=== PATIENT | male | born 2000 | race Caucasian/White ===

== ENCOUNTER 2019-08-24 15:52 | Emergency (ER) | payer OTHER, SELFPAY ==
[2019-08-24 16:02] VITALS: BP 139/73; PULSE 80; RESP 16; TEMP 36.5; O2SAT 100
--- NOTE | 2019-08-24 16:13 | ED.GENADULT ---
HPI - General Adult General Chief complaint: GI Bleed Stated complaint: Blood in Stool Time Seen by Provider: 08/24/19 16:15 Source: patient and RN notes reviewed Mode of arrival: ambulatory Limitations: no limitations History of Present Illness HPI narrative: 19-year-old male presents with concern for rectal bleeding. Reports 2-month history of intermittent bleeding when he wipes after a bowel movement, reports this morning he noted drips of blood in the toilet. He denies any pain with bowel movements. Reports family history of hemorrhoids. Denies black, tarry stools. Denies diarrhea or constipation. Denies abdominal pain. Denies nausea, vomiting. MD complaint: Rectal bleeding Related Data Allergies Allergy/AdvReac Type Severity Reaction Status Date / Time No Known Allergies Allergy Mild Verified 12/18/12 19:56 Review of Systems Review of Systems: Narrative: CONSTITUTIONAL: Denies malaise, chills, sweats, or fever. CARDIOVASCULAR: Denies chest pain, palpitations RESPIRATORY: Denies cough or dyspnea. GASTROINTESTINAL: Denies abdominal pain, nausea, vomiting, diarrhea, or mucous stools. Reports rectal bleeding with bowel movement GENITOURINARY: Denies dysuria or hematuria. MUSCULOSKELETAL: Denies myalgia. NEUROLOGIC: Denies numbness, weakness, or headache. All systems reviewed & are unremarkable except as noted in HPI and below PMFSH Social History Social History Gender identity (if verbalized by the patient): Male Comments At time of signature, agree with nursing past medical, surgical, social and family history. There is no relevant family history pertinent to the presenting complaint Exam Narrative: Exam Narrative: GENERAL: Well-appearing, well-nourished, and in no acute distress. HEAD: Normocephalic EYES: PERRLA, conjunctivae clear ENT: Mucous membranes moist. NECK: Supple. CHEST: No respiratory distress. Clear to auscultation. No bony deformities, no asymmetry. Speaks in full sentences. HEART: Regular rate and rhythm. No murmur heard. Normal peripheral pulses. ABDOMEN: Soft, nontender, nondistended, normal active bowel sounds, no palpable masses. NEURO: Alert and oriented x3. Skin: Warm, dry, no rash PSYCH: Normal mood and affect GI: Rectal Exam: visual inspection normal, normal sphincter tone and Internal hemorrhoid(s) present Course Course Emergency Course: Patient is aware of diagnosis, understands and agrees to treatment plan. Anticipatory guidance given. Patient agrees to follow-up as directed and is aware of reasons to seek care at the emergency department. Portions of this record may have been created with voice recognition software Vital Signs Vital signs: Vital Signs Temperature 97.7 F 08/24/19 16:02 Pulse Rate 80 08/24/19 16:02 Respiratory Rate 16 08/24/19 16:02 Blood Pressure 139/73 08/24/19 16:02 Pulse Oximetry 100 08/24/19 16:02 Temperature 97.7 F 08/24/19 16:02 Pulse Rate 80 08/24/19 16:02 Respiratory Rate 16 08/24/19 16:02 Blood Pressure 139/73 08/24/19 16:02 Pulse Oximetry 100 08/24/19 16:02 Reviewed. Pt has been instructed to follow up with his primary care provider within the next week regarding his elevated blood pressure today. Medical Decision Making MDM Narrative Medical decision making narrative: Exam findings show no acute concerns or changes; patient is non-toxic appearing and is in no distress. Patient is appropriate for outpatient treatment and follow-up. Differential Diagnosis Differential Diagnosis: GI bleed, internal hemorrhoid, external hemorrhoid, fissure, cellulitis, abscess Vital Signs Vital Signs: Vital Signs Temperature 97.7 F 08/24/19 16:02 Pulse Rate 80 08/24/19 16:02 Respiratory Rate 16 08/24/19 16:02 Blood Pressure 139/73 08/24/19 16:02 Pulse Oximetry 100 08/24/19 16:02 Temperature 97.7 F 08/24/19 16:02 Pulse Rate 80 08/24/19 16:02
== END 2019-08-24 16:30 | disposition home or self-care (01) ==
PROVIDERS: Emergency Provider Nurse Practitioner
DX: K64.8 Other hemorrhoids (principal); K21.9 Gastro-esophageal reflux disease without esophagitis; H40.9 Unspecified glaucoma
CPT/HCPCS: 99213; G0463

== ENCOUNTER 2022-10-22 11:22 | Emergency (ER) | payer OTHER, SELFPAY ==
[2022-10-22 11:35] VITALS: BP 128/62; PULSE 63; RESP 12; TEMP 37.1; O2SAT 100
--- NOTE | 2022-10-22 11:49 | ED.SKABFB ---
HPI - Skin/Abscess/Foreign Bdy General Chief complaint: Skin/Abscess/Foreign Body Stated complaint: poison star Time Seen by Provider: 10/22/22 11:50 Source: patient Mode of arrival: ambulatory Limitations: no limitations History of Present Illness HPI narrative: 22-year-old male presents with complaint of itchy rash to left hand, left forearm and now to left eye for the past 2-3 days. Started after doing a clean-up at [place]. Is applying calamine lotion and taking Benadryl for itching. States that rash to left eye started this morning. All systems reviewed and negative except as noted above. Related Data Home Medications Medication Instructions Recorded Confirmed bupropion HCl 150 mg 24 hr tablet, 150 mg PO DAILY 10/22/22 10/22/22 extended release escitalopram oxalate 10 mg tablet 10 mg PO DAILY 10/22/22 10/22/22 Allergies Allergy/AdvReac Type Severity Reaction Status Date / Time No Known Allergies Allergy Mild Verified 10/22/22 11:32 Review of Systems Review of Systems: CONSTITUTIONAL: Denies fever, chills, or sweats. EYES: Denies visual changes, redness, or discharge. ENT: Denies rhinorrhea, congestion, sore throat, or otalgia. CARDIOVASCULAR: Denies chest pain, palpitations, or edema. RESPIRATORY: Denies cough or dyspnea. GASTROINTESTINAL: Denies abdominal pain, nausea, vomiting, or diarrhea. GENITOURINARY: Denies dysuria or hematuria. SKIN: Reports rash and itching. MUSCULOSKELETAL: Denies back pain, joint pain, or myalgia. NEUROLOGIC: Denies headache, numbness, or weakness. PSYCHIATRIC: Denies anxiety or depression. All other systems reviewed are negative, except as documented in HPI. PMFSH Social History Social History Gender identity (if verbalized by the patient): Male Comments At time of signature, agree with nursing past medical, surgical, social and family history. There is no relevant family history pertinent to the presenting complaint. Exam Narrative: GENERAL: This is a well-nourished, well-developed patient, in no apparent distress. HEAD: normocephalic, atraumatic. EYES: PERRL. Sclera clear/white. Vision is grossly intact. EARS: External ears normal NOSE: External nose normal NECK: Neck supple, non-tender without lymphadenopathy, masses or thyromegaly. CARDIOVASCULAR: Regular rate and rhythm without murmurs, gallops, or rubs. RESPIRATORY: Clear to auscultation. Breath sounds equal bilaterally. No wheezes, rales, or rhonchi. SKIN: warm, Dry, intact, good texture and turgor. erythematous vesicular rash to L hand, wrist, forearm with mild weeping. mild erythema below L eye. NEURO: awake, alert, and oriented to person, place and time. There were no obvious focal neurologic abnormalities. EXTREMITIES: No joint tenderness, effusion, or edema noted. No calf tenderness. Negative Homans sign bilaterally. BACK: Nontender without deformity. Course Course Level of Care: Express Care Visit Vital Signs Vital signs: Vital Signs Temperature 37.1 C 10/22/22 11:35 Pulse Rate 63 10/22/22 11:35 Respiratory Rate 12 10/22/22 11:35 Blood Pressure 128/62 10/22/22 11:35 Pulse Oximetry 100 10/22/22 11:35 Temperature 37.1 C 10/22/22 11:35 Pulse Rate 63 10/22/22 11:35 Respiratory Rate 12 10/22/22 11:35 Blood Pressure 128/62 10/22/22 11:35 Pulse Oximetry 100 10/22/22 11:35 reviewed MDM - Skin/Abscess/Foreign Bdy MDM Narrative Medical decision making narrative: Patient is aware of diagnosis, understands and agrees to treatment plan. Anticipatory guidance given. Patient agrees to follow-up as directed and is aware of reasons to seek care at the emergency department. Portions of this record may have been created with voice recognition software Discharge Plan Discharge Clinical Impression: Dermatitis due to plants, including poison star, sumac, and oak Patient Disposition: Home, S
== END 2022-10-22 12:00 | disposition home or self-care (01) ==
PROVIDERS: Emergency Provider Nurse Practitioner Family; PCP Family Medicine Sports Medicine
DX: L25.5 Unspecified contact dermatitis due to plants, except food (principal); F17.200 Nicotine dependence, unspecified, uncomplicated; K21.9 Gastro-esophageal reflux disease without esophagitis; H40.9 Unspecified glaucoma; F41.9 Anxiety disorder, unspecified; F32.A Depression, unspecified
CPT/HCPCS: 99213; G0463